=== PATIENT | female | born 1960 | race Caucasian/White ===

== ENCOUNTER 2016-08-02 05:32 | Day surgery (SDC) | payer OTHER ==
[~2016-08-02] VITALS: Ht 162.6 cm; Wt 77.8 kg
[2016-08-02] MEDS ORDERED: NS 1000P @30 MLS/HR (KVO) IV SCH (06:00)
[2016-08-02 06:31] VITALS: BP 121/66; PULSE 62; RESP 18; TEMP 98.2; O2SAT 100
[2016-08-02] MEDS ORDERED: NITR1SUB3 SL (06:39)
[2016-08-02] MEDS ORDERED: VITA50TA10 PO (06:39)
[2016-08-02] MEDS ORDERED: LO LTAB PO (06:39)
[2016-08-02] MEDS ORDERED: ASPI81CH CHEW (06:39)
[2016-08-02] MEDS ORDERED: OMEP20TA PO (06:39)
[2016-08-02] MEDS ORDERED: VALA1TAB PO (06:39)
[2016-08-02 06:48] LABS: AUTOMATED NEUTROPHIL # 5.3 TH/MM3 (1.8-7.7); BASOPHIL % 0.6 % (0.0-2.0); EOSINOPHIL # 0.1 TH/MM3 (0-0.4); HEMATOCRIT 38.7 % (35.0-46.0); HEMO FLAGS DIFF FINAL; LYMPH % 20.1 % (9.0-44.0); LYMPHOCYTE # 1.5 TH/MM3 (1.0-4.8); MEAN CELL VOLUME 84.2 FL (80.0-100.0); MEAN CORPUSCULAR HEMOGLOBIN 28.9 PG (27.0-34.0); MEAN CORPUSCULAR HGB CONC 34.3 % (32.0-36.0); NEUT % 71.3 % (16.0-70.0); PLATELET COUNT 213 TH/MM3 (150-450); RED BLOOD COUNT 4.59 MIL/MM3 (4.00-5.30); RED CELL DISTRIBUTION WIDTH 12.8 % (11.6-17.2); WHITE BLOOD COUNT 7.4 TH/MM3 (4.0-11.0)
[2016-08-02 07:00] LABS: APTT (PATIENT) 25.9 SEC (24.3-30.1); INTERNATIONAL NORMALIZED RATIO 0.9 RATIO
[2016-08-02] MEDS ORDERED: HEPARIN-NS/PF INJ 500 ML ONE (07:08)
[2016-08-02 07:13] LABS: BICARBONATE 26.2 MEQ/L (21.0-32.0); POTASSIUM 3.6 MEQ/L (3.5-5.1)
[2016-08-02] MEDS ORDERED: MIDAZOLAM HCL 2 MG/2 ML VIAL ONE (07:20)
[2016-08-02] MEDS ORDERED: IOHEXOL 350 MG/ML 100 ML BTL (for Cath Lab) OTHER ONE (07:49)
[2016-08-02] MEDS ORDERED: SODIUM CHLOR 0.9% 1000 ML INJ 1,000 ML IV SCH (08:21)
[2016-08-02] MEDS ORDERED: ONDANSETRON HCL 4 MG/2 ML VIAL IV PRN (08:30)
[2016-08-02] MEDS ORDERED: oxyCODONE/ACETAMINOPHEN 5 MG/325 MG TAB PO PRN (08:30)
[2016-08-02] MEDS ORDERED: SODIUM CHLORIDE 0.9% FLUSH 5 ML FLUSH IVF PRN (08:30)
[2016-08-02] MEDS ORDERED: DILT-60 PO (08:59)
[2016-08-02] MEDS ORDERED: SODIUM CHLORIDE 0.9% FLUSH 5 ML FLUSH IVF SCH (09:00)
--- NOTE | 2016-08-02 09:42 | MA ---
cc: RUSTY ROY M.D., SAVITHA B. DO WILSON, VANCE E. M.D. DATE: 08/02/2016 PROCEDURES PERFORMED Left heart catheterization, left ventriculography, coronary angiography. BRIEF HISTORY Merle Cruz is a 55-year-old female who has been having substernal chest discomfort occurring on a sporadic basis and feels like chest pressure. She has a family history of coronary artery disease in her mother and sister. She has had a nuclear stress test that was normal. She has had a CT derived coronary calcium score of zero, however, because of continuing chest pain, there is persistent concern about the diagnosis of coronary artery disease. The patient has requested a cardiac catheterization for definitive diagnosis. She has already been to a GI doctor and has had workup showing no evidence of gallstones. DESCRIPTION OF PROCEDURE The patient was brought to the cardiac clam bed laborer in a fasting state. Using 1% lidocaine for local anesthesia a 6-1/2 [place] sheath was inserted in the right femoral artery. Left ventricular pressure was then recorded using a pigtail catheter followed by left ventriculography and then a pullback. Coronary angiography was completed using a left 4 Jessika for left coronary artery and a 3DRC for the right coronary artery. The sheath was then being pulled manually and no complications. FINDINGS 1. Hemodynamics. Left ventricular pressure is 118 over 10 with an end-diastolic pressure of 13. Aortic pressure is 127/73 with a mean of 97. There is no gradient during pullback from the left ventricle to the aorta. 2. Left ventriculography. Left ventriculography reveals a symmetrically trevor left ventricle with an EF of 65-70%. There was no wall motion abnormalities. There is no mitral regurgitation. There is no coronary calcification. 3. Coronary angiography. Coronary circulation is right-dominant. The left main coronary artery is normal. It bifurcates into the LAD and circumflex artery. The LAD gives off a very early diagonal branch almost like a ramus intermediate type vessel. This vessel bifurcates and both divisions appear normal. Left anterior descending artery continues on and does not give off any additional diagonals, gives off several small septal barrel drum cutter branches. The mid segment of the LAD demonstrates myocardial bridging. Intracoronary nitroglycerin was given during the cath which made ___ more prominent. There is about 30% compression of the LAD during systole. The circumflex artery gives off one major obtuse marginal branch, a very tiny second obtuse marginal branch and a small distal circumflex vessel. The right coronary artery is dominant, large caliber and appears normal. CONCLUSIONS 1. Normal hemodynamics. 2. Normal left ventricular function. 3. 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 PLAN Empiric trial of medical therapy. I am going to suggest diltiazem sustained release 120 mg daily as initial approach. She will be discharged home later today. MD VERENICE Garg/SHAWNA /8:18 AM /9:28 AM
--- NOTE | 2016-08-02 12:13 | EKG ---
Date Performed: 08/02/2016 Time Performed: 06:44:12 PTAGE: 55 years EKG: Sinus bradycardia with borderline 1st degree A-V block Poor r wave progression probably due to lead placement, cannot exclude anteroseptal infarct. Abnormal ECG NO PREVIOUS TRACING DOCTOR: Victor M Castillo Interpretating Date/Time 08/02/2016 12:12:06
== END 2016-08-02 14:49 | disposition home or self-care (01) ==
LOC: HDOC 05:32 → HDIC 05:33 → HDOC 14:49
PROVIDERS: ATTEND Internal Medicine Cardiovascular Disease
DX: R07.9 Chest pain, unspecified (principal); Q24.8 Other specified congenital malformations of heart; Z79.01 Long term (current) use of anticoagulants; Z82.49 Family history of ischemic heart disease and other diseases of the circulatory system
CPT/HCPCS: 80048; 85025; 85610; 85730; 93005; 93458; C1769; C1893; J1644; J2250; J3010; J7030; Q9967